=== PATIENT | female | born 1955 | race Caucasian/White ===

== ENCOUNTER 2025-08-26 09:33 | Outpatient (CLI) | payer MEDICARE | END 2025-08-26 09:34 | disposition home or self-care (01) | LOC: NM 09:33 | PROVIDERS: ATTEND Physician Assistant | DX: T85.698A Other mechanical complication of other specified internal prosthetic devices, implants and grafts, initial encounter (principal); M17.12 Unilateral primary osteoarthritis, left knee; Z96.651 Presence of right artificial knee joint; R93.7 Abnormal findings on diagnostic imaging of other parts of musculoskeletal system | CPT/HCPCS: 78315; A9503 ==